=== PATIENT | female | born 2005 | race Caucasian/White ===

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

== ENCOUNTER 2023-06-15 02:25 | Emergency (ER) | payer OTHER ==
[~2023-06-15] VITALS: Ht 154.9 cm; Wt 72.6 kg
[~2023-06-15 02:25] MED LIST changes: +ALBU0.0912 INH; +IBUP-2213 PO; +INHA1SPA24 MC; +ROB PO; +TAM75 PO
[2023-06-15 02:26] VITALS: BP 102/60; PULSE 87; RESP 16; TEMP 97.8; O2SAT 99
[2023-06-15 02:53] VITALS: BP 123/53; PULSE 81; RESP 12; O2SAT 97
[2023-06-15] MEDS ORDERED: KETOROLAC 60 MG/2 ML VIAL IM ONE (03:10)
[2023-06-15] MEDS ORDERED: NAPR-54 PO (04:13)
== END 2023-06-15 04:22 | disposition home or self-care (01) ==
LOC: MED 02:25
DX: S23.3XXA Sprain of ligaments of thoracic spine, initial encounter (principal); Z79.899 Other long term (current) drug therapy; Z79.1 Long term (current) use of non-steroidal anti-inflammatories (NSAID); X58.XXXA Exposure to other specified factors, initial encounter; Y92.89 Other specified places as the place of occurrence of the external cause; Y93.89 Activity, other specified; Y99.8 Other external cause status
CPT/HCPCS: 71101; 81025; 96372; 99283; J1885

== ENCOUNTER 2023-10-19 12:34 | Emergency (ER) | payer OTHER ==
[~2023-10-19] VITALS: Ht 154.9 cm; Wt 77.1 kg
[~2023-10-19 12:34] MED LIST changes: +NAPR-54 PO
[2023-10-19 12:41] VITALS: BP 111/58; PULSE 85; RESP 20; TEMP 98.2; O2SAT 98
== END 2023-10-19 14:28 | disposition home or self-care (01) ==
LOC: MED 12:34
DX: J06.9 Acute upper respiratory infection, unspecified (principal); Z79.899 Other long term (current) drug therapy
CPT/HCPCS: 71045; 99283

== ENCOUNTER 2023-12-10 15:36 | Emergency (ER) | payer OTHER ==
[~2023-12-10] VITALS: Ht 154.9 cm; Wt 77.1 kg
[~2023-12-10 15:36] MED LIST changes: +NAPR-337 PO; -NAPR-54 PO
[2023-12-10 15:47] VITALS: BP 107/69; PULSE 99; RESP 18; TEMP 99.3; O2SAT 96
[2023-12-10] MEDS: ONDANSETRON 4 MG ODT PO ONE (17:29)
[2023-12-10] MEDS: ACETAMINOPHEN EXTRA STRENGTH 500 MG TAB PO ONE (17:30)
[2023-12-10] MEDS: KETOROLAC 30 MG/ML VIAL IM ONE (17:31)
[2023-12-10 18:14] LABS: FLU A ANTIGEN negative (NEGATIVE); FLU B ANTIGEN NEGATIVE (NEGATIVE)
[2023-12-10] MEDS ORDERED: ONDA-188 PO (18:34)
[2023-12-10] MEDS ORDERED: ACET-9882 PO (18:34)
[2023-12-10] MEDS ORDERED: IBUP-2213 PO (18:34)
== END 2023-12-10 18:43 | disposition home or self-care (01) ==
LOC: MED 15:36
DX: B34.9 Viral infection, unspecified (principal); Z20.822 Contact with and (suspected) exposure to COVID-19; Z79.899 Other long term (current) drug therapy
CPT/HCPCS: 81002; 81025; 87081; 87426; 87804; 96372; 99283; J1885; Q0162

== ENCOUNTER 2024-02-15 17:19 | Emergency (ER) | payer OTHER ==
[~2024-02-15] VITALS: Ht 154.9 cm; Wt 72.6 kg
[~2024-02-15 17:19] MED LIST changes: +ACET-9882 PO; +ONDA-188 PO
[2024-02-15 17:30] VITALS: BP 124/77; PULSE 73; RESP 16; TEMP 97.8; O2SAT 98
[2024-02-15] MEDS ORDERED: IBUP-2213 PO (18:06)
[2024-02-15] MEDS: KETOROLAC 60 MG/2 ML VIAL IM ONE (18:12)
[2024-02-15] MEDS ORDERED: KETOROLAC 60 MG/2 ML VIAL IM ONE (18:12)
[2024-02-15 18:14] LABS: APPEARANCE,URINE CLEAR (CLEAR); BILIRUBIN,URINE NEGATIVE (NEGATIVE); BLOOD, URINE 1+ (NEGATIVE); COLOR,URINE YELLOW (YELLOW); LEUKOCYTE ESTERASE ,URINE NEGATIVE (NEGATIVE); NITRITE, URINE NEGATIVE (NEGATIVE); PH,URINE 6.5 (5.0-9.0); PROTEIN,URINE NEGATIVE (NEGATIVE); UGLUCOSE NEGATIVE (NEGATIVE); UROBILINOGEN,URINE 0.2 EU/dL (0.2 - 1)
[2024-02-15 18:26] LABS: BACTERIA,URINE FEW /HPF (None Seen); SQUAMOUS EPITHELIAL CELL,UR 4-10 (MOD) /LPF (0-3 (FEW)); WBC,URINE 0-5 /HPF (0-5)
[2024-02-15 19:10] VITALS: BP 124/77; PULSE 73; RESP 16; TEMP 97.8; O2SAT 98
== END 2024-02-15 18:57 | disposition home or self-care (01) ==
LOC: MED 17:19
DX: R51.9 Headache, unspecified (principal); F12.90 Cannabis use, unspecified, uncomplicated; Z79.899 Other long term (current) drug therapy
CPT/HCPCS: 81001; 81025; 96372; 99283; J1885

== ENCOUNTER 2024-02-18 22:48 | Emergency (ER) | payer OTHER ==
[~2024-02-18] VITALS: Ht 154.9 cm; Wt 72.6 kg
[2024-02-18 22:55] VITALS: BP 124/60; PULSE 80; RESP 18; TEMP 97.8; O2SAT 98
[2024-02-19] MEDS ORDERED: AMOX-1230 PO (01:16)
[2024-02-19 01:33] VITALS: BP 126/60; PULSE 82; RESP 17; TEMP 97.8
[2024-02-19 01:34] VITALS: O2SAT 98
== END 2024-02-19 01:20 | disposition home or self-care (01) ==
LOC: MED 22:48
DX: J02.9 Acute pharyngitis, unspecified (principal); R51.9 Headache, unspecified; R50.9 Fever, unspecified; Z79.899 Other long term (current) drug therapy
CPT/HCPCS: 99283

== ENCOUNTER 2024-03-07 21:15 | Emergency (ER) | payer OTHER ==
[~2024-03-07] VITALS: Ht 154.9 cm; Wt 72.6 kg
[~2024-03-07 21:15] MED LIST changes: +AMOX-1230 PO
[2024-03-07 21:29] VITALS: BP 126/75; PULSE 76; RESP 16; TEMP 97.1; O2SAT 99
[2024-03-07] MEDS: NACL 0.9% 1,000 ML IV ONE (23:19)
[2024-03-07] MEDS: KETOROLAC 30 MG/ML VIAL IVP ONE (23:26)
[2024-03-07] MEDS: METOCLOPRAMIDE 10 MG/2 ML INJ VIAL IVP ONE (23:29)
[2024-03-07 23:30] VITALS: BP 126/61; PULSE 90; RESP 16; TEMP 97.7; O2SAT 99
[2024-03-07] MEDS: diphenhydrAMINE 50 MG/ML VIAL IVP ONE (23:30)
[2024-03-08] MEDS: ACETAMINOPHEN EXTRA STRENGTH 500 MG TAB PO ONE (01:17)
== END 2024-03-08 02:57 | disposition home or self-care (01) ==
LOC: MED 21:15
DX: R51.9 Headache, unspecified (principal); N92.6 Irregular menstruation, unspecified; Z79.1 Long term (current) use of non-steroidal anti-inflammatories (NSAID); Z79.899 Other long term (current) drug therapy; Z79.2 Long term (current) use of antibiotics
CPT/HCPCS: 70450; 84703; 96361; 96374; 96375; 99285; J1200; J1885; J2765; J7030

== ENCOUNTER 2024-05-17 21:50 | Emergency (ER) | payer OTHER ==
[~2024-05-17] VITALS: Ht 154.9 cm; Wt 71.7 kg
[2024-05-17 22:22] VITALS: BP 121/59; PULSE 61; RESP 14; TEMP 97.5; O2SAT 100
[2024-05-17 23:10] LABS: APPEARANCE,URINE HAZY (CLEAR); BILIRUBIN,URINE NEGATIVE (NEGATIVE); BLOOD, URINE NEGATIVE (NEGATIVE); COLOR,URINE YELLOW (YELLOW); LEUKOCYTE ESTERASE ,URINE 1+ (NEGATIVE); NITRITE, URINE NEGATIVE (NEGATIVE); PH,URINE 6.5 (5.0-9.0); PROTEIN,URINE NEGATIVE (NEGATIVE); UGLUCOSE NEGATIVE (NEGATIVE); UROBILINOGEN,URINE 0.2 EU/dL (0.2 - 1)
[2024-05-17 23:29] LABS: BACTERIA,URINE 2+ /HPF (None Seen); RBC,URINE NONE SEEN /HPF (0-5); SQUAMOUS EPITHELIAL CELL,UR 20-50 /LPF (0-3 (FEW)); WBC,URINE 0-5 /HPF (0-5)
[2024-05-18] MEDS ORDERED: NITR100C7 PO (01:11)
[2024-05-18 02:46] VITALS: O2SAT 100
== END 2024-05-18 01:15 | disposition home or self-care (01) ==
LOC: MED 21:50
DX: N39.0 Urinary tract infection, site not specified (principal); G43.909 Migraine, unspecified, not intractable, without status migrainosus; Z79.899 Other long term (current) drug therapy
CPT/HCPCS: 70450; 81001; 81025; 87086; 99284